=== PATIENT | male | born 1955 | race Caucasian/White ===

== ENCOUNTER 2018-12-23 06:56 | Inpatient (IN) ==
--- NOTE | 2018-12-04 08:51 | History & Physical Report ---
Date of Service December 04, 2018 Date of Surgery: 12-23-18 Assessment & Plan (1) Osteoarthritis of left knee: Risks and benefits of procedure discussed in detail today, patient would like to proceed with a left total knee replacement at [facility] as scheduled. will obtain medical clearance prior to surgery as well as obtain PATs at [facility]. Will place on ASA 81mg po bid x 1 month post op, f/u 2 weeks post op for routine post-operative care and x-ray, sooner if having any problems. will make arrangements for HHPT at the time of discharge. At this point in time, has failed conservative measures and would like to proceed with surgical intervention. History of Present Illness Chief Complaint: left knee pain Primary Care Provider: Jaime Houston Mr Burr is a 63 year old male who complains of left knee pain, presents for pre-op evaluation prior to a left total knee replacement by Dr Corral at [facility]. He presents with pain and decreased range of motion in the left knee. he states that the symptoms have been chronic non-traumatic and are pretty constant with intermittent worsening. Currently the patient states that the symptoms are moderate. The pain is described as aching, sharp and throbbing. The symptoms are aggravated by daily activities, ascending stairs, descending stairs, first steps while awake, repetitive activities, sleeping in any position, squatting and walking. Richard states that the symptoms are not relieved by any specific activities, he has tried prior injections including visco and cortisone, NSAIDs including Aleve and IBU. In addition to knee pain, he is also experiencing crepitus, decreased mobility, joint pain, loss of motion and stiffness. at this point has failed conservative measure and would like to proceed with a left total knee replacement. Allergies Allergy/AdvReac Type Severity Reaction Status Date / Time No Known Allergies Allergy Verified 12/01/18 16:36 Home Medications Home Medications Medication Instructions Recorded Confirmed Type ferrous sulfate [iron] 325 mg PO DAILY 12/01/18 12/01/18 History Past Med/Surg History Medical History Diverticular disease Osteoarthritis Sciatica Sleep apnea CPAP Surgical History History of carpal tunnel release of both wrists History of colonoscopy History of umbilical hernia repair History of wisdom tooth extraction Family History Mother Family history of diabetes mellitus Social History Preferred Language: Palauan Communication Ability: 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 Beliefs That Will Affect Care: None Current Living Situation: Alone Other Information That Helps Us Care for You: No Feels Safe at Home: Yes Safety Concerns: Feels Safe At This Time Smoking Status: Never smoker Do You Dip or Chew Tobacco: No Second Hand Exposure: No Hx Alcohol Use: Yes Hx Substance Use: No Review of Systems Review of Systems: All systems reviewed & are unremarkable except as noted in HPI & below Constitutional: no fever, no chills and no sweats Respiratory: no cough and no dyspnea Cardiovascular: no chest pain, no dyspnea and no orthopnea Gastrointestinal: no abdominal pain, no nausea and no vomiting Musculoskeletal: as per Subjective / HPI Physical Exam Physical Exam: Ht: 5ft 7in Wt: 94.35kg BP: 116/82 Pulse: 78 Constitutional: WD/WN, vitals as above no acute distress Respiratory: normal respiratory effort, lungs clear to auscultation no respiratory distress, no labored breathing and does not use accessory muscles Cardiovascular: RRR, no murmur, no edema Gastrointestinal (Abdomen): normal bowel sounds, soft, nontender, no hepatosplenomegaly Musculoskeletal: Richard ambulates with a limp, there is no erythema, warmth, ecchymosis or atrophy noted, +1 effusion, greatest tenderness over the medial joint line and anterior knee joint. negative patellar apprehension , mild cre pitation with motion, margarita's negative, posterior drawer negative. positive mcmurrays medially, negative anterior drawer, knee stable with valgus/varus stress. no extensor lag. pain with active range of motion, AROM 0/3/110, Passive ROM 0/3/115. No pain with active/passive ROM of ankle. Lower Extremity Strength normal. Lower Extremity Neuro-vascular is normal Results & Data Diagnostic Findings Left Knee X-ray from 11-10-18 confirms advanced degenerative changes to the left knee, greatest in his medial compartment and patellofemoral joint, showing joint space narrowing, osteophyte formation and subchondral sclerosis. no acute bony pathology noted.
--- NOTE | 2018-12-04 11:23 | Anesthesiology Consultation ---
Date of Service December 04, 2018 Assessment & Plan (1) Encounter for pre-operative examination: PCP CLEARANCE (BILL) 12/14 = "EKG sinus rhythm no acute changes. Labs unremarkable. Chest x-ray unremarkable. Patient medically cleared for upcoming total knee replacement." Chart Review Chart Review: Acceptable Risk for Surgery and Patient seen in Pre Admission Testing Teaching & Discussion Instructed NPO after midnight before surgery, except medications with 15 cc of water. Medication instructions provided according to the PAT guidelines. History Surgery Operation Date: 12/23/18 11:10 Proposed Procedures p Left Total Knee Arthroplasty - Octaviano Corral DO Height/Weight Height: 5 ft 7 in Weight: 95.4 kg Allergies Allergy/AdvReac Type Severity Reaction Status Date / Time No Known Allergies Allergy Verified 12/01/18 16:36 Medications Home Medications Medication Instructions Recorded Confirmed Last Taken ferrous sulfate [iron] 325 mg PO DAILY 12/01/18 12/01/18 Unknown Past Medical History Medical History Obesity Osteoarthritis Sciatica Sleep apnea CPAP Exercise / Class Metabolic Activity II 4-5 Yardwork/Stairs/Walk up hill (Denies CP or SOB with stairs) Past Family History Family History Mother Family history of diabetes mellitus Past Surgical History Surgical History History of carpal tunnel release of both wrists History of colonoscopy History of umbilical hernia repair History of wisdom tooth extraction Past Anesthesia History No Hx of Anesthesia Complications and No Family Hx of Anesthesia Complications History of PONV No Hx of PONV and No Hx of Motion Sickness Social History Smoking Status: Never smoker Do You Dip or Chew Tobacco: No Hx Alcohol Use: Yes alcohol intake frequency: holidays/special occasions only Hx Substance Use: No substance use type: does not use Review of Systems Pt denies any recent chest pain, shortness of breath, palpitations, cough, fever or URI. Physical Exam Vital Signs BP: 126/73 P: 55bpm SPO2: 99% RA T: 97.7 F R: 16 ENMT Mouth: + dental restorations (one cap on bottom incisor); no chipped teeth and no loose teeth Thyromental Distance: < 3.5 Finger Breadths (3) Mallampati Class: II Neck normal visual inspection and + facial hair (very short trimmed handlebar + chinstrap); neck extension not limited Respiratory normal respiratory effort Auscultation: lungs clear to auscultation bilaterally Cardiovascular Rate/Rhythm: regular rate and regular rhythm Heart Sounds: no murmur Vessels: no carotid bruit Extremities: no edema Testing Laboratory Results 12/04/18 11:39 12/04/18 11:39 12/04/18 12/04/18 12/04/18 11:39 11:39 11:39 PT 10.5 INR 1.0 APTT 26.8 Hemoglobin A1c 5.6 Urine Color Urine Appearance Urine pH Ur Specific [place] Urine Protein Urine Glucose (UA) Urine Ketones Urine Nitrite Ur Leukocyte Esterase Blood Type A Positive Antibody Screen NEGATIVE 12/04/18 11:39 PT INR APTT Hemoglobin A1c Urine Color Yellow Urine Appearance Clear Urine pH 7.0 Ur Specific [place] 1.020 Urine Protein Negative Urine Glucose (UA) Negative Urine Ketones Negative Urine Nitrite Negative Ur Leukocyte Esterase Negative Blood Type Antibody Screen Electrocardiogram Date: 12/04/18 Findings: + SB @ (55) Chest X-Ray Date: 12/04/18 Findings: + NAD
--- NOTE | 2018-12-04 11:31 | PAT Medication Instructions ---
Medication Instructions Date of Service December 04, 2018 Home Medications ferrous sulfate [iron] 325 mg PO DAILY DO NOT take the morning of surgery ferrous sulfate [iron] 325 mg PO DAILY Other Notes If you have any questions please call us at [phone] or [phone] or [phone] or [phone]
--- NOTE | 2018-12-04 12:06 | XRay Report ---
XR chest Pre-admission PA/Lat CLINICAL HISTORY: pat preoperative evaluation COMPARISON STUDY: No previous studies for comparison. FINDINGS: The bones soft tissues and hemidiaphragms are normal. The cardiomediastinal silhouette is n ormal. The lungs are clear. The pulmonary vasculature is normal. IMPRESSION: Negative chest. The above report was generated using voice recognition software. It may contain grammatical, syntax or spelling errors. Electronically signed by: Gagan Jean M.D. 12/04/2018 12:04 PM
[2018-12-04 12:35] LABS: Basophils # (auto) 0.01 K/uL (0-0.2); Basophils % (auto) 0.2 %; Eosinophils # (auto) 0.15 K/uL (0-0.5); Hematocrit (blood only) 39.7 % (42-52); Hemoglobin 13.5 g/dL (14.0-18.0); Immature Granulocytes # (auto) 0.01 K/uL (0.00-0.02); Immature Granulocytes % (auto) 0.2 %; Lymphocytes # (auto) 1.72 K/uL (1.2-3.4); Lymphocytes % (auto) 34.8 %; Mean Corpuscular Volume 90.8 fL (80-100); Mean Platelet Volume 10.2 fL (7.4-10.4); Monocytes # (auto) 0.31 K/uL (0.11-0.59); Monocytes % (auto) 6.3 %; Neutrophils # (auto) 2.74 K/uL (1.4-6.5); Neutrophils % (auto) 55.5 %; Platelet Count 289 K/uL (130-400); RDW Coefficient of Variation 12.8 % (11.5-14.5); RDW Standard Deviation 42.7 fL (36.4-46.3); Red Blood Count 4.37 M/uL (4.7-6.1); White Blood Count 4.94 K/uL (4.8-10.8)
[2018-12-04 12:36] LABS: Appearance Urine Clear (Clear); Bilirubin Urine Negative (Negative); Blood Urine Negative (Negative); Color Urine Yellow; Glucose Urine UA Negative (Negative); Ketones Urine Negative (Negative); Leukocyte Esterase Urine Negative (Negative); Nitrite Urine Negative (Negative); Protein Urine Negative (Negative); Urobilinogen Urine Negative (Negative)
[2018-12-04 12:46] LABS: Partial Thromboplastin Time 26.8 Seconds (21.0-31.0); Prothrombin Time 10.5 Seconds (9.0-12.0)
[2018-12-04 12:47] LABS: Albumin Level 3.7 gm/dl (3.4-5.0); BUN Creatinine Ratio 22.2 (10-20); Calcium 9.3 mg/dl (8.5-10.1); Creatinine Clr Calc Pharmacy 81.8 ml/min; Est GFR (African American) 89.8; Est GFR (Non-African American) 77.5; Potassium 4.2 mmol/L (3.5-5.1)
[2018-12-04 12:52] LABS: Estimated Average Glucose 114 mg/dl; Hemoglobin A1C 5.6 % (4.5-5.6)
[~2018-12-23 06:56] MED LIST: ACETAMINOPHEN 500 MG TAB PO SCH; BUPIVACAINE 0.5 % 5 MG/1 ML PF 10ML VIAL ONE; CEFAZOLIN 2000MG 2,000 MG/15 ML SYR IV SCH; CeleBREX 200 MG CAP PO SCH; FAMOTIDINE 20 MG TAB PO SCH; GABAPENTIN 300 MG PO SCH; LR 500ML BOLUS, THEN 15ML/HR IV SCH; METOCLOPRAMIDE HCL 10 MG TABLET PO SCH; ROPIVACAINE 0.5% 5 MG/ML 30 ML VIAL ONE; ROPIVACAINE 0.5% HCL/PF 150 MG, BUPIVACAINE 0.5% MPF 30 ML, EPINEPHrine 30MG/30ML (OR U... INFIL SCH; TRANEXAMIC ACID 1,000 MG **IV Intra-op IV SCH; TRANEXAMIC ACID 1,000 MG **IV Pre-op IV SCH; dexAMETHasone 4 MG TAB PO SCH
--- OUTSIDE RECORDS SUMMARY | 2018-12-23 07:04 | External Medical Summary | Continuity of Care Document ---
:1955 Author Name Ann Garcia, Provider Address Unavailable Unavailable , Care Team Providers Name Role Phone Trip LEON M.D., E. PAnastacio Unavailable [email or web address] Active medical history not documented Allergies and Adverse Reactions Allergy history not documented Medications Medications not documented Procedures Procedures not documented Immunizations Immunizations not documented Plan of Treatment Planned Observations Planned Goals not documented Results No Known Results Results not documented Encounters Appointment; Lizzie Dominique III, M.D. 19-Nov-2018 16:00 Encounter Diagnosis: Problem not documented
[2018-12-23] MEDS ORDERED: fentaNYL citrate 100 MCG/2 ML VIAL ONE (07:28)
[2018-12-23] MEDS ORDERED: MIDAZOLAM HCL 1 MG/ML 2ML VIAL ONE (07:29)
[2018-12-23] MEDS ORDERED: PROPOFOL IV EMULSION 10 MG/ML 20 ML VIAL IV ONE (07:29)
[2018-12-23] MEDS ORDERED: BUPIVACAINE 0.25% 30 ML VIAL ONE (08:22)
--- NOTE | 2018-12-23 08:25 | History & Physical Bridge Note ---
Date of Service December 23, 2018 History & Physical Bridge Note I have examined the patient, reviewed the History & Physical and in the interval since the performance of the History & Physical I have noted the following changes of clinical significance: no changes noted
[2018-12-23] MEDS ORDERED: ORTHO JOINT ANESTHETIC ONE (08:51)
[2018-12-23] MEDS ORDERED: BACITRACIN INJ 50,000 UNIT VIAL ONE (08:51)
[2018-12-23] MEDS ORDERED: ePHEDrine sulfate 50 MG/ML AMP IV PRN ×3 (09:02→12:01)
[2018-12-23] MEDS ORDERED: ATROPINE SULFATE 0.1 MG/ML 10ML SYR IV PRN ×3 (09:02→12:01)
--- NOTE | 2018-12-23 10:29 | Operative Report ---
Post Operative Report Pre & Post Diagnosis Operation Date: 12/23/18 09:40 Pre-Op Diagnosis: Unilateral Primary Osteoarthritis, Left Knee Post-Op Diagnosis: Unilateral Primary Osteoarthritis, Left Knee Procedure Operation Date: 12/23/18 09:40 Actual Procedures p Left Total Knee Arthroplasty(Left) utilizing Lange [employer] Nephew journey to non- block total knee arthroplasty size 5 femur 4 tibia 12 polyethylene 32 oval patella- Octaviano Corral DO Surgeon Octaviano Corral DO Cabinet And Trim Installer Jose Luis BREWSTER Estimated Blood Loss 5 Findings Consistent with Post-Op Diagnosis Patient presents with complaints of ongoing pain about the left knee and no response to conservative management his preoperative findings included subchondral sclerosis marginal osteophytes eburnated bone varus alignment with Specimens Bone cartilage Drains Medium bore Hemovac Complications none Disposition Accompanied Patient To Recovery: No Disposition: Recovery Room Indications Patient presents the above intraoperative findings noted with failure of conservative management including physical therapy anti-inflammatories relative rest corticosteroid injection Visco supplementation bracing patient is failed attempted conservative management presents for left total knee arthroplasty Description of Procedure After proper prepping and draping of the left lower extremity anterior midline incision was made over the region of the extensor extensor mechanism after meticulous hemostasis was obtained and maintained in subcutaneous tissues a medial parapatellar incision was made The patella was subluxed lateralward the medial lateral gutter were cleaned from any hypertrophic synovitis and scar tissue of the distal femoral block was placed and the distal femoral osteotomy cut was made subsequently the chamfers anterior and posterior osteotomy cuts were made utilizing the 4-in-1 block the tibia was subsequently subluxed anteriorward medial and ateral meniscal remnants were excised in their entirety remnants of the anterior and posterior cruciate ligaments were excised in their entirety excellent exposure of the proximal tibia was obtained the tibial osteotomy guide was placed on the proximal tibial osteotomy cut was made once again the knee was irrigated with copious amounts of sterile saline solution the patella was subsequently everted lateralward thickened scar tissue around the patella was removed the patella was subsequently cut utilizing a freehand technique and was drilled prepared for final preparation and placement of patella socially flexion-extension gaps were checked and the equal and symmetric trials were placed to the appropriate femoral and tibial trials with poly-spacer being placed for equal flexion and extension gaps and full range of motion including extension to 0 and flexion to 140� the trial components after having been taken to recovery range of motion was subsequently removed meticulous hemostasis was obtained and maintained subsequently a knee block injection of joint cocktail including ropivacaine 0.5% 150 mg. Bupivacaine 0.5% epinephrine 1-200,030 mL's toradol 30 mg dexamethasone 4 mg ketamine 10 mg clonidine 100 micrograms normal saline solution 30 mg was infiltrated into the soft tissues of the posterior knee medial lateral gutters and periosteal synovium special attention was paid to protect neurovascular structures at all times subsequently trial components having been removed the knee was irrigated with sterile saline solution. debris was removed the proximal tibia was subsequently prepared and was made ready for the placement of the tibial component tibial component was also cemented and tamped into position the femoral component was subsequently placed and cemented in the position the patellar component was subsequently cemented in position because hemostasis once again obtained and maintained wound having been thoroughly irrigated with debridement and debridement lavage was performed as well as a medial parapatellar incision closed with #1 Vicryl in interrupted fashion subcutaneous was closed with #2 Vicryl skin was closed with skin clips. PA-C was necessary for prepping and drapping as well as wound closure of deep fascia Sub cutaneous tissue and skin and was necessary for the case. A sterile compressive dressing was placed patient was taken to recovery in stable condition of report dictated by I attest to the content of the Intraoperative Record and any orders documented therein. Any exceptions are noted below. I attest to the content of the Intraoperative Record and any orders documented therein. Any exceptions are noted below.
[2018-12-23] MEDS ORDERED: ONDANSETRON INJ 2 MG/ML 2 ML VIAL IV PRN ×2 (11:06→12:01)
[2018-12-23] MEDS ORDERED: NALOXONE HCL 0.4 MG/1 ML VIAL/CARP IV PRN (11:06)
[2018-12-23] MEDS ORDERED: TAMSULOSIN HCL 0.4 MG CAP PO PRN (11:06)
[2018-12-23] MEDS ORDERED: ALUMINUM/MAGNESIUM SUSP 30 ML UDC PO PRN (11:06)
[2018-12-23] MEDS ORDERED: MAGNESIUM HYDROXIDE SUSP 30 ML UDC PO PRN (11:06)
[2018-12-23] MEDS ORDERED: METOCLOPRAMIDE HCL INJ 5 MG/ML 2 ML VIAL IV PRN (11:06)
[2018-12-23] MEDS ORDERED: OXYCODONE HCL IR 5 MG TAB (IMMEDIATE RELEASE) PO PRN (11:06)
[2018-12-23] MEDS ORDERED: HYDROmorphone INJ 0.5 MG/0.5 ML SYR IV PRN (11:06)
[2018-12-23] MEDS ORDERED: BISACODYL 10 MG SUPP PR PRN (11:06)
--- NOTE | 2018-12-23 11:36 | XRay Report ---
XR knee LT 2V routine CLINICAL HISTORY: Postoperative examination. COMPARISON: None. DISCUSSION: There are postsurgical changes of a total left knee arthroplasty and patellar resurfacing . The femoral and tibial components appear well seated. Overlying surgical drains are evident. There is soft tissue gas consistent with recent surgery. IMPRESSION: Postsurgical changes of a total left knee arthroplasty. Electronically signed by: Seven Cheng M.D. 12/23/2018 11:35 AM
--- NOTE | 2018-12-23 11:41 | Anesthesiology Progress Note ---
Date of Service December 23, 2018 Anesthesia Post Procedure Vital Signs Vital Signs: Temp Pulse Resp BP Pulse Ox 12/23/18 11:35 36.8 C 65 15 122/72 96 12/23/18 11:25 36.8 C 53 L 16 115/72 99 12/23/18 11:15 36.8 C 52 L 14 121/72 100 12/23/18 11:06 36.8 C 56 L 14 106/68 94 12/23/18 07:45 36.4 C L 53 L 18 128/77 100 Transfer of Care Handoff Completed per policy Notes Mental Status: alert / awake / arousable and participated in evaluation Nausea / Vomiting: adequately controlled Pain: adequately controlled Airway Patency, RR, SpO2: stable & adequate BP & HR: stable & adequate Hydration State: stable & adequate Neuraxial Anesthesia: was administered and sensory block is resolving Anesthetic Complications: no major complications apparent and Pt Satisfied with anesthetic care
[2018-12-23] MEDS ORDERED: fentaNYL citrate 100 MCG/2 ML VIAL IV PRN (12:01)
[2018-12-23] MEDS: ACETAMINOPHEN 500 MG TAB PO SCH ×2 (13:40→21:07)
[2018-12-23] MEDS: KETOROLAC 30 MG/ML VIAL IV SCH ×3 (13:42→23:19)
[2018-12-23] MEDS: SODIUM CHLORIDE 0.9% 1000ML 1,000 ML IV SCH ×2 (17:20→20:34)
[2018-12-23] MEDS: CEFAZOLIN 2000MG 2,000 MG/15 ML SYR IV SCH (17:22)
[2018-12-23] MEDS: ASCORBIC ACID 500 MG TAB PO SCH (17:22)
[2018-12-23] MEDS: ASPIRIN 81 MG ECTAB PO SCH (20:41)
[2018-12-23] MEDS: DOCUSATE SODIUM 100 MG CAP PO SCH (20:41)
[2018-12-23] MEDS ORDERED: SENNA 8.6 MG TAB PO SCH (21:00)
[2018-12-24] MEDS: CEFAZOLIN 2000MG 2,000 MG/15 ML SYR IV SCH (01:54)
[2018-12-24] MEDS: KETOROLAC 30 MG/ML VIAL IV SCH (05:41)
[2018-12-24] MEDS: ACETAMINOPHEN 500 MG TAB PO SCH ×2 (05:41→13:32)
[2018-12-24 05:48] LABS: Hematocrit (blood only) 33.7 % (42-52); Hemoglobin 11.5 g/dL (14.0-18.0); Mean Corpuscular Hgb Conc 34.1 g/dL (32-36); Mean Corpuscular Volume 90.3 fL (80-100); Mean Platelet Volume 9.9 fL (7.4-10.4); Platelet Count 224 K/uL (130-400); RDW Coefficient of Variation 12.8 % (11.5-14.5); RDW Standard Deviation 42.6 fL (36.4-46.3); Red Blood Count 3.73 M/uL (4.7-6.1); White Blood Count 15.76 K/uL (4.8-10.8)
[2018-12-24 06:20] LABS: BUN Creatinine Ratio 24.4 (10-20); Calcium 8.3 mg/dl (8.5-10.1); Creatinine Clr Calc Pharmacy 89.6 ml/min; Est GFR (Non-African American) 85.4; Potassium 4.4 mmol/L (3.5-5.1)
--- NOTE | 2018-12-24 07:06 | Orthopedic Progress Note ---
Date of Service December 24, 2018 Assessment & Plan (1) Status post total left knee replacement: POD #1 s/p left TKA pt/ot dvt proph with JH/SCD/ASA plan for d/c home with HHPT , will likely leave the hemovac in until tomorrow and have HH nurse pull in the am. Subjective POD #1 s/p left TKA Review of Systems Constitutional: no fever and no chills Respiratory: no cough and no dyspnea Cardiovascular: no chest pain and no dyspnea Gastrointestinal: no nausea and no vomiting Physical Exam Physical Exam: Vital Signs Temp 36.8 C 12/24/18 04:05 Pulse 58 L 12/24/18 04:05 Resp 16 12/24/18 04:05 BP 116/71 12/24/18 04:05 Pulse Ox 98 12/24/18 04:05 Intake & Output 12/23/18 12/24/18 12/24/18 18:59 06:59 18:59 Intake Total 1685 / 2978.333 1293.333 / 2978.33 3 Output Total 32 / 2432 2400 / 2432 Balance 1653 / 546.333 -1106.667 / 546.33 3 Weight 97.3 kg Intake: IV 610 / 1503.333 893.333 / 1503.333 Lr 1,000 ml @ 0 mls/hr IV .Q0M 500 / 500 [facility] Rx#:[id number] Nss 1000ML 1,0 00 ml @ 100 mls/ 893.333 / 893.333 hr IV .Q10H SC H Rx#:[id number] Cyklokapron 1, 000 mg In Sodium 110 / 110 Chloride 100 m l @ 660 mls/hr IV TODAY@0600 [facility] Rx#:[id number] IV Perioperative 800 / 800 Oral 275 / 675 400 / 675 Output: Urine 2100 / 2100 Estimated Blood Loss 5 / 5 Drain Output 300 / 327 Left Knee Hemo vac #1 300 / 327 Constitutional: WD/WN, vitals as above no acute distress Musculoskeletal: left knee: NVDI, calf SNT, negative nakul sign. DP palpable, able to wiggle toes/ankle movement without difficulty. dressing clean dry and intact. Results & Data Vital Signs (Past 12 Hours) Vital Signs Temp Pulse Resp BP BP Pulse Ox 12/24/18 04:05 36.8 C 58 L 16 116/71 98 12/23/18 23:27 36.8 C 57 L 15 121/74 94 12/23/18 20:19 36.6 C 65 16 127/77 99 Laboratory Results Laboratory Results WBC 15.76 K/uL (4.8-10.8) H 12/24/18 05:26 RBC 3.73 M/uL (4.7-6.1) L 12/24/18 05:26 Hgb 11.5 g/dL (14.0-18.0) L 12/24/18 05:26 Hct 33.7 % (42-52) L 12/24/18 05:26 MCV 90.3 fL (80-100) 12/24/18 05:26 MCH 30.8 pg (25-34) 12/24/18 05:26 MCHC 34.1 g/dL (32-36) 12/24/18 05:26 RDW Std Deviation 42.6 fL (36.4-46.3) 12/24/18 05:26 RDW Coeff of Luciano 12.8 % (11.5-14.5) 12/24/18 05:26 Plt Count 224 K/uL (130-400) 12/24/18 05:26 MPV 9.9 fL (7.4-10.4) 12/24/18 05:26 Immature Gran % (Auto) 0.2 % 12/04/18 11:39 Neut % (Auto) 55.5 % 12/04/18 11:39 Lymph % (Auto) 34.8 % 12/04/18 11:39 Tripp % (Auto) 6.3 % 12/04/18 11:39 Eos % (Auto) 3.0 % 12/04/18 11:39 Baso % (Auto) 0.2 % 12/04/18 11:39 Immature Gran # (Auto) 0.01 K/uL (0.00-0.02) 12/04/18 11:39 Neut # (Auto) 2.74 K/uL (1.4-6.5) 12/04/18 11:39 Lymph # (Auto) 1.72 K/uL (1.2-3.4) 12/04/18 11:39 Tripp # (Auto) 0.31 K/uL (0.11-0.59) 12/04/18 11:39 Eos # (Auto) 0.15 K/uL (0-0.5) 12/04/18 11:39 Baso # (Auto) 0.01 K/uL (0-0.2) 12/04/18 11:39 PT 10.5 Seconds (9.0-12.0) 12/04/18 11:39 INR 1.0 (0.9-1.1) 12/04/18 11:39 APTT 26.8 Seconds (21.0-31.0) 12/04/18 11:39 PTT Ratio 1.0 12/04/18 11:39 Sodium 142 mmol/L (136-145) 12/24/18 05:26 Potassium 4.4 mmol/L (3.5-5.1) 12/24/18 05:26 Chloride 110 mmol/L (98-107) H 12/24/18 05:26 Carbon Dioxide 26 mmol/L (21-32) 12/24/18 05:26 Anion Gap 6.0 (3-11) 12/24/18 05:26 BUN 23 mg/dl (7-18) H 12/24/18 05:26 Creatinine 0.95 mg/dl (0.6-1.4) 12/24/18 05:26 Est Cr Clr Drug Dosing 89.6 ml/min 12/24/18 05:26 Est GFR ( Amer) 99.0 12/24/18 05:26 Est GFR (Non-Af Amer) 85.4 12/24/18 05:26 BUN/Creatinine Ratio 24.4 (10-20) H 12/24/18 05:26 Glucose 126 mg/dl (70-99) H 12/24/18 05:26 Estimat Average Glucose 114 mg/dl 12/04/18 11:39 Hemoglobin A1c 5.6 % (4.5-5.6) 12/04/18 11:39 Calcium 8.3 mg/dl (8.5-10.1) L 12/24/18 05:26 Albumin 3.7 gm/dl (3.4-5.0) 12/04/18 11:39 Urine Color Yellow 12/04/18 11:39 Urine Appearance Clear (Clear) 12/04/18 11:39 Urine pH 7.0 (4.5-7.5) 12/04/18 11:39 Ur Specific [place] 1.020 (1.000-1.030) 12/04/18 11:39 Urine Protein Negative (Negative) 12/04/18 11:39 Urine Glucose (UA) Negative (Negative) 12/04/18 11:39 Urine Ketones Negative (Negative) 12/04/18 11:39 Urine Blood Negative (Negative) 12/04/18 11:39 Urine Nitrite Negative (Negative) 12/04/18 11:39 Urine Bilirubin Negative (Negative) 12/04/18 11:39 Urine Urobilinogen Negative (Negative) 12/04/18 11:39 Ur Leukocyte Esterase Negative (Negative) 12/04/18 11:39 Blood Type A Positive 12/04/18 11:39 Antibody Screen NEGATIVE 12/04/18 11:39 Diagnostic Findings XR knee LT 2V routine CLINICAL HISTORY: Postoperative examination. COMPARISON: None. DISCUSSION: There are postsurgical changes of a total left knee arthroplasty and patellar resurfacing. The femoral and tibial components appear well seated. Overlying surgical drains are evident. There is soft tissue gas consistent with recent surgery. IMPRESSION: Postsurgical changes of a total left knee arthroplasty.
[2018-12-24] MEDS ORDERED: dexAMETHasone 10 MG in SYRINGE 0 ML IV SCH (08:00)
[2018-12-24] MEDS: ASPIRIN 81 MG ECTAB PO SCH (08:38)
[2018-12-24] MEDS: ASCORBIC ACID 500 MG TAB PO SCH (08:38)
[2018-12-24] MEDS: DOCUSATE SODIUM 100 MG CAP PO SCH (08:44)
[2018-12-24] MEDS ORDERED: MULTIVITAMIN TAB PO SCH (09:00)
[2018-12-24] MEDS ORDERED: FERROUS SULFATE 325 MG TAB PO SCH (09:00)
[2018-12-24] MEDS ORDERED: CeleBREX 200 MG CAP PO SCH (21:00)
--- NOTE | 2018-12-29 13:57 | Discharge Summary ---
CHIEF COMPLAINT: Left knee pain. Please see complete history and physical examination. HOSPITAL COURSE: The patient underwent left total knee arthroplasty, no complication. He tolerated the procedure well and was discharged to recovery room in stable condition. His postop course was relatively uneventful. His postoperative pain was reasonably well controlled with a combination of spinal anesthesia, intraoperative joint injection, adductor canal block, IV and oral pain medications. He was started on aspirin for DVT prophylaxis. He also utilized JH stockings and SCDs for additional prophylaxis. His H and H were stable and did not require transfusion. His surgical drain and dressing will be changed by home health on postoperative day 2. This was set up with the porter sample case. He tolerated postop physical therapy reasonably well as he was ambulating and transferring appropriately. He was discharged home on postop day 1. He will continue his physical therapy at home with home health. He will continue his aspirin for DVT prophylaxis and follow up in our office in approximately 10-14 days for his initial postop evaluation.
== END 2018-12-24 14:43 | disposition home health service (06) | DRG 470 ==
LOC: ASU 06:56 → 3E 12:02

== ENCOUNTER 2019-03-16 08:44 | Inpatient (IN) ==
--- NOTE | 2019-02-17 15:49 | History & Physical Report ---
Date of Service February 17, 2019 date of surgery: 03-16-19 Assessment & Plan (1) Arthritis of knee, right: Further care discussed with patient and at this point in time has failed conservative measures and would like to proceed with a Right total knee replacement. Plan on discharge will be home with home health physical therapy. DVT prophalaxis with TEDs, SCDs and will also place on aspirin 81 mg p.o. b.i.d. for a month postop. Patient will have follow up appointment in our office two weeks post op for staple/suture removal and re-evaluation. Patient otherwise has no other questions or concerns. History of Present Illness Chief Complaint: right knee pain Primary Care Provider: Jaime Celso Mr Burr is a 63 year old male who is here for a follow up of right knee pain, presents for pre-op evaluation prior to a right total knee replacement at [facility]. He presents with pain and decreased range of motion on the right side. He states that the symptoms have been chronic non-traumatic. The symptoms occur constantly with intermittent worsening. Currently the patient states that the symptoms are moderate-severe. The pain is described as aching, sharp and throbbing. The symptoms occur continuously. The symptoms are aggravated by ascending stairs, descending stairs, daily activities, driving, first steps while awake, kneeling, repetitive activities, sleeping on the affected side, squatting, standing, walking and weight bearing. Richard states that the symptoms are relieved by no specific activity. In addition to right knee pain the patient is also experiencing decreased mobility, difficulty bending, difficulty going to sleep, instability, limping, nighttime awakening, pain, stiffness, tenderness and weakness. Pertinent negatives include chills and fever. The patient has had a previous x-ray. Prior NSAIDs include Aleve. He has been treated with a corticosteroid injection on the right side. Patient has been treated with previ ous visco supplementation. Allergies Allergy/AdvReac Type Severity Reaction Status Date / Time No Known Allergies Allergy Verified 12/23/18 07:42 Home Medications Home Medications Medication Instructions Recorded Confirmed Type ferrous sulfate [iron] 325 mg PO DAILY 12/01/18 12/23/18 History oxycodone 5 - 10 mg PO Q6H PRN #30 tab 12/24/18 Rx Past Med/Surg History Medical History Obesity Osteoarthritis Sciatica Sleep apnea CPAP Surgical History History of carpal tunnel release of both wrists History of colonoscopy History of umbilical hernia repair History of wisdom tooth extraction Family History Mother Family history of diabetes mellitus Social History Preferred Language: Indonesian Communication Ability: Effective Castables Worker Required: No Beliefs That Will Affect Care: None marital status: Current Living Situation: Alone Feels Safe at Home: Yes Smoking Status: Never smoker Second Hand Exposure: No ; Hx Alcohol Use: Yes Hx Substance Use: No Review of Systems Review of Systems: All systems reviewed & are unremarkable except as noted in HPI & below Constitutional: no fever, no chills and no sweats Respiratory: no cough and no dyspnea Cardiovascular: no chest pain, no dyspnea and no orthopnea Gastrointestinal: no abdominal pain, no nausea and no vomiting Musculoskeletal: as per Subjective / HPI Physical Exam Physical Exam: BP: 124/78 Pulse: 60 Constitutional: WD/WN, vitals as above no acute distress Respiratory: normal respiratory effort, lungs clear to auscultation no respiratory distress, no labored breathing and does not use accessory muscles Cardiovascular: RRR, no murmur, no edema Gastrointestinal (Abdomen): normal bowel sounds, soft, nontender, no hepatosplenomegaly Musculoskeletal: Right Knee Physical Exam- ambulates with a limp, there is no erythema, warmth, ecchymosis or atrophy noted, +1 effusion, greatest tenderness over the medial joint line and anterior knee joint. negative patellar apprehension , mild crepitation with motion, margarita's negative, posterior drawer negative. positive mcmurrays medially, negative anterior drawer, knee stable with valgus/varus stress. no extensor lag. pain with active range of motion, AROM 0/3/110, Passive ROM 0/3/115. No pain with active/passive ROM of ankle. Lower Extremity Strength normal. Lower Extremity Neuro-vascular is normal Results & Data Diagnostic Findings right knee xray from 01/08/19 showing complete loss joint space medial compartment with overall varus alignment, there is also narrowing of the lateral compartment and patellofemoral joint. there is osteophyte formation, subchondral sclerosis noted, no loose bodies, no acute bony pathology. overall impression tricompartmental degenerative changes to the right knee.
--- NOTE | 2019-03-10 16:36 | Anesthesiology Consultation ---
Date of Service March 10, 2019 Assessment & Plan (1) Encounter for pre-operative examination: Chart Review Chart Review: Acceptable Risk for Surgery and Patient NOT seen in Pre Admission Testing Consults Requested none PCP CLEARANCE from [facility] ([facility]) 12/14 = "EKG sinus rhythm no acute changes. Labs unremarkable. Chest x-ray unremarkable. Patient medically cleared for upcoming total knee replacement." History Surgery Operation Date: 03/16/19 12:55 Proposed Procedures p Right Total Knee Arthroplasty - Octaviano Corral DO Height/Weight Height: 5 ft 7 in Weight: 94.347 kg Allergies Allergy/AdvReac Type Severity Reaction Status Date / Time No Known Allergies Allergy Verified 02/19/19 08:40 Medications Home Medications Medication Instructions Recorded Confirmed Last Taken ferrous sulfate [iron] 325 mg PO DAILY 12/01/18 02/19/19 12/22/18 07:00 Past Medical History Medical History Obesity Osteoarthritis Sciatica Sleep apnea CPAP Exercise / Class Metabolic Activity II 4-5 Yardwork/Stairs/Walk up hill (denies CP or SOB) Past Family History Family History Mother Family history of diabetes mellitus Past Surgical History Surgical History History of carpal tunnel release of both wrists History of colonoscopy History of left knee replacement 12/23/2018 [facility] History of umbilical hernia repair History of wisdom tooth extraction Past Anesthesia History No Hx of Anesthesia Complications and No Family Hx of Anesthesia Complications 12/23/17 for left knee replacement had single shot adductor and SAB without apparent complications History of PONV No Hx of PONV and No Hx of Motion Sickness Social History Smoking Status: Never smoker Do You Dip or Chew Tobacco: No Hx Alcohol Use: Yes alcohol intake frequency: holidays/special occasions only Hx Substance Use: No substance use type: does not use Testing Laboratory Results 02/22/19 WBC: 4.92 H/H: 12.2/38.8 PLATELETS: 285 SODIUM: 140 POTASSIUM: 4.4 CHLORIDE: 106 CO2: 26.1 BUN: 21.6 CREATININE: 1.07 GLUCOSE: 100 UA: neg TYPE AND SCREEN: A+ Ab neg (done at an outside hospital) HgbA1C 5.3 Other Testing Electrocardiogram Date: 12/04/18 Findings: + SB @ (55) Chest X-Ray Date: 12/04/18 Findings: + NAD
[~2019-03-16 08:44] MED LIST changes: +BUPIVACAINE 0.25% 30 ML VIAL ONE; -GABAPENTIN 300 MG PO SCH; +GABAPENTIN 600 MG DOSE PO SCH; -METOCLOPRAMIDE HCL 10 MG TABLET PO SCH; -ROPIVACAINE 0.5% 5 MG/ML 30 ML VIAL ONE; -ROPIVACAINE 0.5% HCL/PF 150 MG, BUPIVACAINE 0.5% MPF 30 ML, EPINEPHrine 30MG/30ML (OR U... INFIL SCH; +ROPIVACAINE 0.5% HCL/PF 150 MG, BUPIVACAINE 0.5% MPF 30 ML, EPINEPHrine 30MG/30ML (OR U... INSTIL SCH
[2019-03-16] MEDS ORDERED: fentaNYL citrate 100 MCG/2 ML VIAL ONE (09:32)
[2019-03-16] MEDS ORDERED: MIDAZOLAM HCL 1 MG/ML 2ML VIAL ONE ×2 (09:32→11:10)
[2019-03-16] MEDS ORDERED: LIDOCAINE HCL 2% 2 ML VIAL/AMP(20MG/ML) INFIL ONE (09:33)
[2019-03-16] MEDS ORDERED: PROPOFOL IV EMULSION 10 MG/ML 20 ML VIAL IV ONE (09:33)
[2019-03-16] MEDS ORDERED: ONDANSETRON INJ 2 MG/ML 2 ML VIAL ONE (09:33)
--- NOTE | 2019-03-16 09:50 | History & Physical Bridge Note ---
Date of Service March 16, 2019 History & Physical Bridge Note I have examined the patient, reviewed the History & Physical and in the interval since the performance of the History & Physical I have noted the following changes of clinical significance: no changes noted
[2019-03-16] MEDS ORDERED: ORTHO JOINT ANESTHETIC ONE (10:25)
[2019-03-16] MEDS ORDERED: BACITRACIN INJ 50,000 UNIT VIAL ONE (10:25)
[2019-03-16] MEDS ORDERED: ONDANSETRON INJ 2 MG/ML 2 ML VIAL IV PRN ×2 (10:41→14:09)
[2019-03-16] MEDS ORDERED: ePHEDrine sulfate 50 MG/ML AMP IV PRN (10:41)
[2019-03-16] MEDS ORDERED: ATROPINE SULFATE 0.1 MG/ML 10ML SYR IV PRN (10:41)
[2019-03-16] MEDS ORDERED: fentaNYL citrate 100 MCG/2 ML VIAL IV PRN (10:41)
--- NOTE | 2019-03-16 12:05 | Operative Report ---
Post Operative Report Pre & Post Diagnosis Operation Date: 03/16/19 11:35 Pre-Op Diagnosis: RIGHT KNEE OSTEOARTHRITIS Post-Op Diagnosis: RIGHT KNEE OSTEOARTHRITIS Procedure Operation Date: 03/16/19 11:35 Actual Procedures p Right Total Knee Arthroplasty(Right) utilizing Lange & Nephew journey to non- block total knee arthroplasty size 5 femur size 5 tibia 9 polyethylene 32 oval patella- Octaviano Corral DO Surgeon Octaviano oCrral DO Stair Builder Wes BREWSTER Estimated Blood Loss 5 Findings Consistent with Post-Op Diagnosis Patient resents with severe end-stage tricompartmental degenerative joint disease right knee with varus alignment subchondral sclerosis marginal osteophytes cystic changes eburnated bone moderate to large effusion no response to conservative management Specimens Bone cartilage Drains Medium bore Hemovac Anesthesia Type General Regional Complications none Disposition Accompanied Patient To Recovery: No Disposition: Recovery Room Indications Patient presents with ongoing planes of pain trouble to the right knee no response to conservative management patient is failed attempted physical therapy anti-inflammatories relative rest activity modification cortical steroid injections Visco supplementation and bracing the above intraoperative findings noted times surgery. Description of Procedure After proper identification patient by the surgeonAfter proper prepping and draping of the Right lower extremity anterior midline incision was made over the region of the extensor extensor mechanism after meticulous hemostasis was obtained and maintained in subcutaneous tissues a medial parapatellar incision was made The patella was subluxed lateralward the medial lateral gutter were cleaned from any hypertrophic synovitis and scar tissue of the distal femoral block was placed and the distal femoral osteotomy cut was made subsequently the chamfers anterior and posterior osteotomy cuts were made utilizing the 4-in-1 block the tibia was subsequently subluxed anteriorward medial and ateral meniscal remnants were excised in their entirety remnants of the anterior and posterior cruciate ligaments were excised in their entirety excellent exposure of the proximal tibia was obtained the tibial osteotomy guide was placed on the proximal tibial osteotomy cut was made once again the knee was irrigated with copious amounts of sterile saline solution the patella was subsequently everted lateralward thickened scar tissue around the patella was removed the patella was subsequently cut utilizing a freehand technique and was drilled prepared for final preparation and placement of patella socially flexion-extension gaps were checked and the equal and symmetric trials were placed to the appropriate femoral and tibial trials with poly-spacer being placed for equal flexion and extension gaps and full range of motion including extension to 0 and flexion to 140 the trial components after having been taken to recovery range of motion was subsequently removed meticulous hemostasis was obtained and maintained subsequently a knee block injection of joint cocktail including ropivacaine 0.5% 150 mg. Bupivacaine 0.5% epinephrine 1-200,030 mL's toradol 30 mg dexamethasone 4 mg ketamine 10 mg clonidine 100 micrograms normal saline solution 30 mg was infiltrated into the soft tissues of the posterior knee medial lateral gutters and periosteal synovium special attention was paid to protect neurovascular structures at all times subsequently trial components having been removed the knee was irrigated with sterile saline solution. debris was removed the proximal tibia was subsequently prepared and was made ready for the placement of the tibial component tibial component was also cemented and tamped into position the femoral component was subsequently placed and cemented in the position the patellar component was subsequently cemented in position because hemostasis once again obtained and maintained wound having been thoroughly irrigated with debridement and debridement lavage was performed as well as a medial parapatellar incision closed with #1 Vicryl in interrupted fashion subcutaneous was closed with #2 Vicryl skin was closed with skin clips. PA-C was necessary for prepping and drapping as well as wound closure of deep fascia Sub cutaneous tissue and skin and was necessary for the case. A sterile compressive dressing was placed patient was taken to recovery in stable condition of report dictated by I attest to the content of the Intraoperative Record and any orders documented therein. Any exceptions are noted below. I attest to the content of the Intraoperative Record and any orders documented therein. Any exceptions are noted below.
--- NOTE | 2019-03-16 13:21 | Anesthesiology Progress Note ---
Date of Service March 16, 2019 Anesthesia Post Procedure Vital Signs Vital Signs: Temp Pulse Pulse Resp BP Pulse Ox 03/16/19 13:15 36.8 C 49 L 15 105/63 98 03/16/19 13:05 47 L 15 108/57 L 93 03/16/19 12:55 57 L 15 102/59 L 99 03/16/19 12:49 36.6 C 57 L 16 96/60 L 98 03/16/19 09:22 36.4 C L 49 L 18 125/82 99 Transfer of Care Handoff Completed per policy Notes Mental Status: alert / awake / arousable and participated in evaluation Nausea / Vomiting: adequately controlled Pain: adequately controlled Airway Patency, RR, SpO2: stable & adequate BP & HR: stable & adequate Hydration State: stable & adequate Neuraxial Anesthesia: was administered and sensory block is resolving Anesthetic Complications: no major complications apparent and Pt Satisfied with anesthetic care
[2019-03-16] MEDS ORDERED: BISACODYL 10 MG SUPP PR PRN (14:09)
[2019-03-16] MEDS ORDERED: MAGNESIUM HYDROXIDE SUSP 30 ML UDC PO PRN (14:09)
[2019-03-16] MEDS ORDERED: HYDROmorphone INJ 0.5 MG/0.5 ML SYR IV PRN (14:09)
[2019-03-16] MEDS ORDERED: NALOXONE HCL 0.4 MG/1 ML VIAL/CARP IV PRN (14:09)
[2019-03-16] MEDS ORDERED: OXYCODONE HCL IR 5 MG TAB (IMMEDIATE RELEASE) PO PRN (14:09)
--- NOTE | 2019-03-16 14:09 | XRay Report ---
TWO VIEWS RIGHT KNEE CLINICAL HISTORY: Postoperative examination. FINDINGS: AP and crosstable lateral portable views of the right knee are obtained. A right knee arthr oplasty is in near anatomic alignment. There has been undersurface remodeling of the patella. No acut e fracture is seen. There are expected postoperative changes around the knee including a surgical tony in, soft tissue edema, and subcutaneous gas. IMPRESSION: Expected postoperative changes status post right knee arthroplasty. No acute fracture is seen. Electronically signed by: Edin Lizama M.D. 03/16/2019 2:07 PM
[2019-03-16] MEDS ORDERED: SODIUM CHLORIDE 0.9% 1000ML 1,000 ML IV SCH (14:15)
[2019-03-16] MEDS: ACETAMINOPHEN 500 MG TAB PO SCH ×2 (14:45→21:52)
[2019-03-16] MEDS: FERROUS GLUCONATE 324 MG TAB PO SCH (17:48)
[2019-03-16] MEDS: CEFAZOLIN 2000MG 2,000 MG/15 ML SYR IV SCH (19:59)
[2019-03-16] MEDS: DOCUSATE SODIUM 100 MG CAP PO SCH (20:00)
[2019-03-16] MEDS ORDERED: SENNA 8.6 MG TAB PO SCH (21:00)
[2019-03-17] MEDS: CEFAZOLIN 2000MG 2,000 MG/15 ML SYR IV SCH (03:17)
[2019-03-17] MEDS: ACETAMINOPHEN 500 MG TAB PO SCH ×2 (05:44→13:53)
[2019-03-17 07:21] LABS: Hematocrit (blood only) 34.5 % (42-52); Hemoglobin 11.2 g/dL (14.0-18.0); Mean Corpuscular Hgb Conc 32.5 g/dL (32-36); Mean Platelet Volume 9.8 fL (7.4-10.4); Platelet Count 270 K/uL (130-400); RDW Standard Deviation 45.1 fL (36.4-46.3); Red Blood Count 3.92 M/uL (4.7-6.1); White Blood Count 15.92 K/uL (4.8-10.8)
[2019-03-17 07:58] LABS: BUN Creatinine Ratio 19.4 (10-20); Calcium 8.4 mg/dl (8.5-10.1); Est GFR (African American) 90.9; Est GFR (Non-African American) 78.4; Potassium 4.3 mmol/L (3.5-5.1)
--- NOTE | 2019-03-17 08:23 | Orthopedic Progress Note ---
Date of Service March 17, 2019 Assessment & Plan (1) Osteoarthritis of right knee: Postop day 1 status post right TKA. PT/OT protocols today. Weightbearing as tolerated. DVT prophylaxis with ASA twice daily, SCDs, HJ hunter. Pain management with p.o. oxycodone, Tylenol, IV hydromorphone. DC planning-patient planning for home health services upon discharge. We will recheck him later this afternoon to see how he is progressing with his PT. Subjective Postop day 1 status post right total knee arthroplasty. Patient is sitting up in a chair at the bedside. He is getting ready to eat his breakfast. He has no complaints this morning states that his pain is controlled and is about a 2/10. He denies shortness of breath, chest pain, lightheadedness. He is hoping to go home today. Physical Exam Physical Exam: Dressings are clean, dry, intact. Calves are soft nontender. Neurovascular is intact. Toes are mobile. Hemovac drainage was 125 mL's from the previous shift. Results & Data Vital Signs (Past 12 Hours) Vital Signs Temp Pulse Pulse Resp BP Pulse Ox 03/17/19 07:19 36.6 C 67 18 141/78 H 93 03/17/19 03:14 36.7 C 54 L 16 114/68 96 03/16/19 23:29 36.4 C L 56 L 16 144/73 H 93 03/16/19 20:40 36.2 C L 57 L 16 117/73 96 Laboratory Results Laboratory Results WBC 15.92 K/uL (4.8-10.8) H 03/17/19 06:59 RBC 3.92 M/uL (4.7-6.1) L 03/17/19 06:59 Hgb 11.2 g/dL (14.0-18.0) L 03/17/19 06:59 Hct 34.5 % (42-52) L 03/17/19 06:59 MCV 88.0 fL (80-100) 03/17/19 06:59 MCH 28.6 pg (25-34) 03/17/19 06:59 MCHC 32.5 g/dL (32-36) 03/17/19 06:59 RDW Std Deviation 45.1 fL (36.4-46.3) 03/17/19 06:59 RDW Coeff of Luciano 14.0 % (11.5-14.5) 03/17/19 06:59 Plt Count 270 K/uL (130-400) 03/17/19 06:59 MPV 9.8 fL (7.4-10.4) 03/17/19 06:59 Sodium 141 mmol/L (136-145) 03/17/19 06:59 Potassium 4.3 mmol/L (3.5-5.1) 03/17/19 06:59 Chloride 109 mmol/L (98-107) H 03/17/19 06:59 Carbon Dioxide 26 mmol/L (21-32) 03/17/19 06:59 Anion Gap 7.0 (3-11) 03/17/19 06:59 BUN 20 mg/dl (7-18) H 03/17/19 06:59 Creatinine 1.02 mg/dl (0.6-1.4) 03/17/19 06:59 Est Cr Clr Drug Dosing 82.0 ml/min 03/17/19 06:59 Est GFR ( Amer) 90.9 03/17/19 06:59 Est GFR (Non-Af Amer) 78.4 03/17/19 06:59 BUN/Creatinine Ratio 19.4 (10-20) 03/17/19 06:59 Glucose 129 mg/dl (70-99) H 03/17/19 06:59 Calcium 8.4 mg/dl (8.5-10.1) L 03/17/19 06:59 Blood Type A Positive 03/16/19 09:13 Antibody Screen NEGATIVE 03/16/19 09:13
[2019-03-17] MEDS: FERROUS GLUCONATE 324 MG TAB PO SCH (08:34)
[2019-03-17] MEDS: DOCUSATE SODIUM 100 MG CAP PO SCH (08:34)
[2019-03-17] MEDS ORDERED: MULTIVITAMIN TAB PO SCH (09:00)
[2019-03-17] MEDS ORDERED: ASPIRIN 81 MG ECTAB PO SCH (09:00)
--- NOTE | 2019-03-17 12:19 | Anesthesiology Progress Note ---
Date of Service March 17, 2019 Anesthesia Post Procedure Vital Signs Vital Signs: Temp Pulse Pulse Pulse Resp BP Pulse Ox 03/17/19 12:03 36.7 C 62 18 125/72 90 03/17/19 07:19 36.6 C 67 18 141/78 H 93 03/17/19 03:14 36.7 C 54 L 16 114/68 96 03/16/19 23:29 36.4 C L 56 L 16 144/73 H 93 03/16/19 20:40 36.2 C L 57 L 16 117/73 96 03/16/19 16:44 55 L 18 127/81 96 03/16/19 16:00 36.7 C 56 L 18 148/88 H 96 03/16/19 15:03 36.8 C 67 18 137/85 99 03/16/19 13:45 36.5 C 49 L 16 118/73 100 03/16/19 13:25 36.8 C 49 L 15 104/57 L 98 03/16/19 13:15 36.8 C 49 L 15 105/63 98 03/16/19 13:05 47 L 15 108/57 L 93 03/16/19 12:55 57 L 15 102/59 L 99 03/16/19 12:49 36.6 C 57 L 16 96/60 L 98 Pain Intensity Left Knee: Pain Intensity: 1 Notes Mental Status: alert / awake / arousable and participated in evaluation Nausea / Vomiting: adequately controlled Pain: adequately controlled Airway Patency, RR, SpO2: stable & adequate BP & HR: stable & adequate Hydration State: stable & adequate Neuraxial Anesthesia: sensory block resolved
--- NOTE | 2019-03-20 00:30 | Discharge Summary ---
DISCHARGE DIAGNOSIS: Degenerative joint disease, right knee. SECONDARY DIAGNOSES: Obesity, osteoarthritis, sciatica, sleep apnea with CPAP use. CONSULTATIONS: None. COMPLICATIONS: None. PROCEDURES: Right total knee arthroplasty performed by Dr. Corral on 03/16/2019. BRIEF HISTORY: As dictated in the history and physical. HOSPITAL SUMMARY: The patient was admitted on the above-noted date and had the above-noted surgery performed, which he tolerated well. On the first postoperative day, he was sitting up in the chair at the bedside and he was getting ready to get his breakfast. He had no complaints that morning and his pain was controlled. He denied shortness of breath, chest pain, or lightheadedness. Dressings were clean, dry and intact. Calves were soft, nontender, neurovascularly intact. Toes were mobile. Hemovac drainage was 125 mL from the previous shift. Vital signs were stable. He was afebrile. Hemoglobin was 11.2 and he was started on physical therapy protocol and continued on DVT prophylaxis and pain management. Plans were for home health services upon discharge. The patient progressed well with his physical therapy, obtaining 93 degrees of flexion and he was ambulating well over 400 feet x2 independently and was otherwise remaining stable and it was felt that he could be discharged to home on 03/17/2019. For further review, please see chart. LABORATORY AND X-RAY DATA: As per chart. DISCHARGE INSTRUCTIONS: The patient will be discharged home in satisfactory condition on 03/17/2019. DIET: Regular. ACTIVITY: Weightbearing as tolerated on the right lower extremity. Follow TK instruction sheets and special care instructions as noted. Follow up with Dr. Corral in 2 weeks. The patient to call for appointment if one has not been made for you. DISCHARGE MEDICATIONS: ____ 1000 mg p.o. q. 8 hours, aspirin 81 mg p.o. b.i.d., cefadroxil 500 mg p.o. b.i.d., oxycodone 5-10 mg p.o. q. 6 hours p.r.n., sennosides 17.2 mg p.o. at bedtime. Resume home meds as listed.
== END 2019-03-17 15:12 | disposition home health service (06) | DRG 470 ==
LOC: ASU 08:44 → 3E 12:56
DX: Z79.899 Other long term (current) drug therapy; Z96.652 Presence of left artificial knee joint; Z68.32 Body mass index [BMI] 32.0-32.9, adult; E66.9 Obesity, unspecified; M17.11 Unilateral primary osteoarthritis, right knee; G47.30 Sleep apnea, unspecified